=== PATIENT | female | born 1995 | race African-American/Black ===

== ENCOUNTER 2018-02-03 16:25 | Emergency (ER) | payer OTHER ==
[2018-02-03 16:42] VITALS: BMI 32.0
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
[2018-02-03] MEDS ORDERED: SODIUM CHLORIDE 0.9% 1000 ML INFUS.BAG IV ONE (18:11)
[2018-02-03] MEDS ORDERED: ACETAMINOPHEN 325 MG TABLET (FP) PO ONE (18:11)
[2018-02-03] MEDS ORDERED: ACETAMINOPHEN 325 MG TABLET (FP) ONE (18:49)
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
[2018-02-03 19:38] VITALS: BP 114/62; PULSE 60; TEMP 97.9
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
--- NOTE | 2018-02-04 10:38 | EKG ---
Test Reason : Blood Pressure : / mmHG Vent. Rate : 089 BPM Atrial Rate : 089 BPM P-R Int : 144 ms QRS Dur : 086 ms QT Int : 358 ms P-R-T Axes : 059 050 043 degrees QTc Int : 435 ms NORMAL SINUS RHYTHM WITH SINUS ARRHYTHMIA NONSPECIFIC T WAVE ABNORMALITY ABNORMAL ECG NO PREVIOUS ECGS AVAILABLE Confirmed by MIRYAM CERVANTES, MARIS ([id number]) on 02/04/2018 10:38:24 AM Referred By: Confirmed By:MARIS WITT MD
== END 2018-02-03 21:41 | disposition home or self-care (01) ==
LOC: JER 16:25
DX: O26.891 Other specified pregnancy related conditions, first trimester (principal); S39.81XA Other specified injuries of abdomen, initial encounter; R10.30 Lower abdominal pain, unspecified; Y04.2XXA Assault by strike against or bumped into by another person, initial encounter; Y93.89 Activity, other specified; Y92.89 Other specified places as the place of occurrence of the external cause; Y99.8 Other external cause status; R55 Syncope and collapse; O99.341 Other mental disorders complicating pregnancy, first trimester; F41.0 Panic disorder [episodic paroxysmal anxiety]; Z3A.12 12 weeks gestation of pregnancy
CPT/HCPCS: 76815; 93005; 93010; 99282-25